=== PATIENT | male | born 1980 | race Caucasian/White ===

== ENCOUNTER → 2016-11-30 | Outpatient (CLI) | payer OTHER ==
--- NOTE | 2016-11-30 09:13 | MR ---
EXAMINATION TYPE: MR brain wo con DATE OF EXAM: 11/30/2016 6:34 AM COMPARISON: 12/15/2009 HISTORY: 36-year-old male headaches, memory loss, visual disturbance TECHNIQUE: Multiplanar, multisequence images of the brain and brainstem were acquired without IV con trast. Diffusion weighted imaging is performed. FINDINGS: No evidence for acute infarction, hemorrhage, mass, mass effect, midline shift, herniation, effacemen t of basal cisterns, or extra-axial fluid collection. The ventricles and sulci are age-appropriate. Major intracranial flow voids are intact. T2/FLAIR weighted sequences show no white matter signal abnormality. Stable prominent retrocerebellar CSF space along the midline measuring 3.9 x 2.2 cm. Otherwise, midli ne structures demonstrate normal morphology. The craniocervical junction is normal. There is moderate mejia sinus mucosal thickening sparing the sphenoid sinuses. Globes the globes are in tact. IMPRESSION: 1. No acute intracranial abnormality or white matter signal changes seen. 2. 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 The former is favored. 3. Continued moderate chronic mejia sinus disease.
== END | disposition home or self-care (01) ==
LOC: RADMRIMAIN 05:55
PROVIDERS: ATTEND Psychiatry & Neurology Neurology
DX: G40.209 Localization-related (focal) (partial) symptomatic epilepsy and epileptic syndromes with complex partial seizures, not intractable, without status epilepticus (principal); H53.9 Unspecified visual disturbance
CPT/HCPCS: 70551

== ENCOUNTER → 2019-09-08 | Outpatient (CLI) | payer BC ==
--- NOTE | 2019-09-08 08:04 | MR ---
EXAMINATION TYPE: MR brain wo/w con DATE OF EXAM: 09/08/2019 7:44 AM COMPARISON: Previous study dated 12/15/2009 HISTORY: Memory loss, muscle weakness TECHNIQUE: Multiplanar, multiecho imaging of the brain was obtained with and without intravenous adm inistration of 7.5 mL intravenous Gadavist. FINDINGS: Midline structures are unremarkable. There is a normal craniocervical junction. Echoplanar diffusion imaging is normal. There is some mucoperiosteal thickening involving the maxillary and ethmoidal air cells bilaterally. There are normal vascular flow voids. The orbits appear normal. There is no evidence of a CP angle mass lesion. There is no acute focal lesion, mass effect or midline shift identified. I do not see evidence of int racranial blood. Following intravenous administration of gadolinium, I do not see evidence of abnormal enhancement. IMPRESSION: 1. NO ACUTE INTRACRANIAL ABNORMALITY. 2. MILD, CHRONIC MAXILLARY AND ETHMOIDAL SINUS MUCOSAL DISEASE.
== END | disposition home or self-care (01) ==
LOC: RADMRIMAIN 07:02
PROVIDERS: ATTEND Family Medicine
DX: G52.9 Cranial nerve disorder, unspecified (principal); J32.0 Chronic maxillary sinusitis; J32.2 Chronic ethmoidal sinusitis
CPT/HCPCS: 70553; A9585

== ENCOUNTER → 2019-10-13 | Outpatient (CLI) | payer BC ==
--- NOTE | 2019-10-14 11:47 | MR ---
EXAMINATION TYPE: MR cspine/lspine wo con DATE OF EXAM: 10/13/2019 COMPARISON: None HISTORY: radiculopathy TECHNIQUE: Multiplanar, multisequence imaging of the lumbar and cervical spine is performed without I V contrast. FINDINGS: Cervical spine MRI: Cervical vertebral bodies show preserved height, alignment, and bone marrow signa l. Some reversal cervical lordosis may be due to positioning or muscle spasm. Cervical cord signal is normal. No significant spinal stenosis. C2-3: Unremarkable C3-4: Small posterior disc herniation may contact the anterior cervical cord. No significant foramina l encroachment C4-5: Small posterior disc bulge causes slight anterior mass effect on the thecal sac. No foraminal e ncroachment C5-6: Right posterior paracentral disc herniation likely contacts the anterior cervical cord, possibl e local mass effect. No definite foraminal encroachment. C6-7: Small central posterior disc bulge towards the right causes anterior mass effect on the thecal sac bilaterally. Mild foraminal encroachment due to uncovertebral joint hypertrophy C7-T1: Unremarkable IMPRESSION: Mild degenerative disc disease. Lumbar spine MRI: Sagittal images of the lumbar spine show vertebral body heights and alignment to [place] near-anatomic, there is an anterolisthesis grade 1 L5-S1, retrolisthesis grade 1 L4-5. The inter vertebral discs demonstrate loss of disc height and signal at L4-5, L5-S1, there are endplate discoge zenaida marrow signal changes with associated spondylosis. The conus medullaris is normal in position an d signal. There is Schmorl's node superior endplate L4 L5-S1: Listhesis contributes to cause foraminal encroachment bilaterally. No evident disc herniation or spinal stenosis. There is bilateral spondylolysis suspected. L4-5: Increased signal at the posterior aspect of the disc may represent annular tear. There is a sma ll posterior disc bulge contacting the anterior thecal sac. No significant foraminal encroachment or spinal stenosis. L3-4, L2-3, L1-2 are within normal limits. IMPRESSION: Spondylolysis with spondylolisthesis L5-S1, degenerative disc disease as described, delia inal encroachment L5-S1. Correlate with plain film prior to any intervention.
== END | disposition home or self-care (01) ==
LOC: RADMRIMAIN 09:59
PROVIDERS: ATTEND Family Medicine
DX: M51.16 Intervertebral disc disorders with radiculopathy, lumbar region (principal); M43.17 Spondylolisthesis, lumbosacral region; M50.30 Other cervical disc degeneration, unspecified cervical region; H53.9 Unspecified visual disturbance
CPT/HCPCS: 72141; 72148

== ENCOUNTER → 2019-10-24 | Outpatient (CLI) | payer BC ==
--- NOTE | 2019-10-24 10:27 | US ---
EXAMINATION TYPE: US abdomen limited DATE OF EXAM: 10/24/2019 COMPARISON: NONE CLINICAL HISTORY: R94.5 abnormal liver function. Abnormal labs EXAM MEASUREMENTS: Liver Length: 15.4 cm Gallbladder Wall: 0.3 cm CBD: 0.3 cm Right Kidney: 10.6 x 4.6 x 5.0 cm Pancreas: Obscured by bowel gas Liver: Echogenic when compared to right kidney, possible fatty sparing near tana= 2.0 x 3.0 cm Gallbladder: wnl Evidence for sonographic Molina's sign: No CBD: wnl Right Kidney: wnl any kidney shows normal cortical medullary differentiation, no hydronephrosis or m ass IMPRESSION: Findings likely represent hepatic steatosis, further evaluation with MRI could be perform ed. Limitations as described.
== END | disposition home or self-care (01) ==
LOC: RADUSMAIN 07:53
PROVIDERS: ATTEND Family Medicine
DX: R94.5 Abnormal results of liver function studies (principal)
CPT/HCPCS: 76705

== ENCOUNTER → 2023-10-17 | Outpatient (CLI) | payer BC ==
--- NOTE | 2023-10-17 17:53 | US ---
EXAMINATION TYPE: US chest DATE OF EXAM: 10/17/2023 COMPARISON: NONE CLINICAL INDICATION: Male, 43 years old with history of R22.2 MASS LUMP; cluster of palpable areas are causing discomfort at the left lateral subcostal region TECHNIQUE: several images taken of palpable areas FINDINGS: [employer] notes: at least 3 hyperechoic areas noted subcutaneously. Two symptomatic area s measured: 1: 2.0 x 0.9 x 1.9cm 2: 1.6 x 0.8 x 1.7cm IMPRESSION: 3 echogenic subcutaneous lesions noted along the left lateral chest wall. The 2 symptomat ic lesions measured 2.0 cm and 1.7 cm. Findings favored to represent subcutaneous lipomas. These can be followed clinically. If any enlargement is noted or if the areas remain symptomatic, consider surg ical evaluation.
== END | disposition home or self-care (01) ==
LOC: RADUSWWP 13:28
PROVIDERS: ATTEND Family Medicine
DX: R22.2 Localized swelling, mass and lump, trunk (principal)
CPT/HCPCS: 76604